=== PATIENT | female | born 1990 | race Caucasian/White ===

== ENCOUNTER 2019-05-14 05:31 | Inpatient (IN) ==
[2019-05-14] MEDS ORDERED: OXYTOCIN 30 UNITS/500 ML BAG IV PRN ×3 (05:47→16:06)
--- NOTE | 2019-05-14 05:49 | History & Physical Report ---
Date of Service May 14, 2019 Assessment & Plan (1) Term : 28yo at 40.2 weeks GA. SROM/ Early labor 1. Fetus Cat1/Cat2 with some variable decels 2 Labor: Progressed compared to exam yesterday. Painfully adam q4-5 minutes. Will augment if indicated 3. Vitals: WNL 4. GBS negative 5. gDM. Well controlled with diet. (2) Gestational diabetes: History of Present Illness Primary Care Provider: Seamus Rodriguez MD 28yo at 40.2 weeks GA. Presents with contractions and LOF. No VB. Good FM. complicated be A1gDM. GBS negative. OBHx for prior VAVD Allergies Allergy/AdvReac Type Severity Reaction Status Date / Time No Known Allergies Allergy Verified 05/14/19 05:56 Home Medications Home Medications Medication Instructions Recorded Confirmed Type escitalopram oxalate [Lexapro] 5 mg PO DAILY 05/05/19 05/14/19 History vit-iron fum-folic ac 1 tab PO DAILY 05/05/19 05/14/19 History [ Vitamin] Patient History Medical History Anxiety Gestational diabetes Surgical History Hx of cholecystitis [place] teeth extracted Social History Preferred Language: [place] Accounts Payable Clerk Required: No Beliefs That Will Affect Care: None marital status: Single Current Living Situation: Spouse Current Living Situation Comment: fiance and son Other Information That Helps Us Care for You: No Feels Safe at Home: Yes Safety Concerns: Feels Safe At This Time Smoking Status: Never smoker Second Hand Exposure: No Hx Alcohol Use: No Hx Substance Use: No Physical Exam Genitourinary: OB Exam Abdomen: + vertex Manual OB Exam: + cervical dilation 2 cm, + cervical effacement 70%, + station -2 and + amniotic fluid (Grossly ruptured) clear and nitrazine positive OB Exam Monitor Tracing: + category II, + normal FHT variability and + variable decelerations Results & Data Vital Signs (Past 12 Hours) Vital Signs Pulse BP 05/14/19 05:44 66 123/77
[2019-05-14] MEDS: LACTATED RINGER'S 1,000 ML IV PRN ×2 (05:53→06:58)
[2019-05-14] MEDS ORDERED: BUPIVACAINE 0.25% 30 ML VIAL ONE (06:03)
[2019-05-14] MEDS ORDERED: ePHEDrine sulfate 50 MG/ML AMP ONE (06:03)
[2019-05-14] MEDS ORDERED: fentaNYL citrate 100 MCG/2 ML VIAL ONE (06:03)
[2019-05-14] MEDS ORDERED: fentaNYL 2MCG/ML ROPIV 1.25MG/ML 100 ML BAG EPI ONE (06:04)
[2019-05-14 06:10] LABS: Hematocrit (blood only) 33.1 % (37-47); Hemoglobin 11.4 g/dL (12.0-16.0); Mean Corpuscular Volume 82.5 fL (80-100); Mean Platelet Volume 10.7 fL (7.4-10.4); Platelet Count 193 K/uL (130-400); RDW Standard Deviation 39.2 fL (36.4-46.3); Red Blood Count 4.01 M/uL (4.2-5.4); White Blood Count 7.16 K/uL (4.8-10.8)
[2019-05-14 06:49] LABS: Mean Corpuscular Hgb Conc 34.4 g/dL (32-36)
--- NOTE | 2019-05-14 07:00 | Anesthesiology Consultation ---
Date of Service May 14, 2019 Assessment & Plan (1) Encounter for pre-operative examination: Chart Review Chart Review: Patient NOT seen in Pre Admission Testing and Acceptable Risk for Labor Epidural Consults Requested none ASA ASA3 Proposed Anesthesia Anesthesia Type: Labor Epidural Risk / Benefits Reviewed With: PT / POA / Parent / Guardian, Accepts Plan and Informed Consent Obtained History Height/Weight Height: 4 ft 10 in Weight: 90.265 kg Allergies Allergy/AdvReac Type Severity Reaction Status Date / Time No Known Allergies Allergy Verified 05/14/19 05:56 Medications Home Medications Medication Instructions Recorded Confirmed Last Taken escitalopram oxalate [Lexapro] 5 mg PO DAILY 05/05/19 05/14/19 05/12/19 vit-iron fum-folic ac 1 tab PO DAILY 05/05/19 05/14/19 05/12/19 [ Vitamin] Active Medications Generic Name Dose Route Start Last Admin Trade Name Freq PRN Reason Stop Dose Admin Lactated Ringer's 1,000 mls @ 125 mls/hr 05/14/19 05:47 05/14/19 06:58 Lr IV 05/16/19 05:46 125 mls/hr .Q8H PRN Administration L&D Protocol Protocol NPO Date Last Intake of Fluids: 05/14/19 Time Last Intake of Fluids: 07:02 Date Last Intake of Solids: 05/13/19 Time Last Intake of Solids: 21:30 Past Medical History Medical History Anxiety Gestational diabetes Exercise / Class Metabolic Activity II 4-5 Yardwork/Stairs/Walk up hill Negative for chest pain or shortness of breath. Past Surgical History Surgical History Hx of cholecystitis [place] teeth extracted Past Anesthesia History No Hx of Anesthesia Complications History of PONV History of PONV and Hx of Motion Sickness Social History Smoking Status: Never smoker Hx Alcohol Use: No Hx Substance Use: No substance use type: does not use Review of Systems Patient denies history of abnormal bleeding or bleeding disorder. Patient denies active use of anticoagulants other than low dose aspirin. Patient denies numbness, tingling or weakness in lower extremities. Patient denies active symptoms of GERD. Physical Exam Vital Signs Last Vital Signs Temp 36.5 C 05/14/19 07:03 Pulse 91 H 05/14/19 07:06 Resp 18 05/14/19 07:03 BP 103/56 L 05/14/19 07:05 Pulse Ox 98 05/14/19 07:06 Constitutional + morbidly obese ENMT Mouth: no TMJ abnormality and oral opening not small Thyromental Distance: > or= 3.5 Finger Breadths Mallampati Class: III Neck normal visual inspection; neck extension not limited Respiratory normal respiratory effort Auscultation: lungs clear to auscultation bilaterally Cardiovascular Rate/Rhythm: regular rate and regular rhythm Heart Sounds: no murmur Neurologic moves all extremities Motor/Sensory: no sensory deficit Psychiatric Orientation: alert and oriented x 3 Testing Laboratory Results 05/14/19 06:03
[2019-05-14] MEDS ORDERED: NALBUPHINE HCL INJ 10 MG/ML AMP IV PRN (07:06)
[2019-05-14] MEDS ORDERED: NALOXONE HCL 1 MG in SODIUM CHLORIDE 0.9% 1000ML 1,000 ML IV PRN (07:06)
[2019-05-14] MEDS ORDERED: NALOXONE HCL 0.4 MG/1 ML VIAL/CARP IV PRN (07:06)
[2019-05-14] MEDS ORDERED: DiphenhydrAMINE HCL 50 MG/ML VIAL IV PRN (07:06)
[2019-05-14] MEDS ORDERED: fentaNYL 2MCG/ML ROPIV 1.25MG/ML 100 ML BAG EPI PRN (07:06)
[2019-05-14] MEDS ORDERED: ePHEDrine sulfate 50 MG/ML AMP IV PRN (07:06)
[2019-05-14] MEDS ORDERED: ONDANSETRON INJ 2 MG/ML 2 ML VIAL IV PRN (07:06)
--- NOTE | 2019-05-14 07:55 | Labor Progress Brief Note ---
Date of Service May 14, 2019 Subjective Reason For Note: Routine Evaluation Assessment & Plan (1) Term : 28yo at 40.2 weeks GA. SROM/ Early labor 1. Fetus Cat1/Cat2 with some variable decels 2 Labor: Progressing. Henrry q4-5 minutes. Will augment if indicated 3. Vitals: WNL 4. GBS negative 5. gDM. Well controlled with diet. (2) Gestational diabetes: Physical Exam Genitourinary: OB Exam Abdomen: + vertex and + regular contractions Manual OB Exam: + cervical dilation 4 cm, + cervical effacement 90% and + station -1 OB Exam Monitor Tracing: + external FHT monitor used, + external uterine monitor used, + category I, + category II and + variable decelerations Results & Data Vital Signs (Past 12 Hours) Vital Signs Temp Pulse Resp BP Pulse Ox 05/14/19 07:51 77 100 05/14/19 07:48 86 93/58 L 05/14/19 07:46 93 H 99 05/14/19 07:43 72 109/56 L 05/14/19 07:41 78 100 05/14/19 07:37 76 90/53 L 05/14/19 07:36 63 100 05/14/19 07:33 87 88/53 L 05/14/19 07:31 83 98 05/14/19 07:29 80 110/59 L 05/14/19 07:26 73 100 05/14/19 07:21 82 99 05/14/19 07:17 93 H 95/53 L 05/14/19 07:16 98 H 98 05/14/19 07:15 70 123/58 L 05/14/19 07:13 73 112/58 L 05/14/19 07:12 18 05/14/19 07:11 81 106/56 L 100 05/14/19 07:09 85 117/57 L 05/14/19 07:07 84 102/56 L 05/14/19 07:06 91 H 98 05/14/19 07:05 90 103/56 L 05/14/19 07:03 36.5 C 93 H 18 99/56 L 05/14/19 07:01 104 H 90/52 L 97 05/14/19 06:59 96 H 96/55 L 05/14/19 06:57 83 101/53 L 05/14/19 06:56 94 H 99 05/14/19 06:55 72 95/55 L 05/14/19 06:53 87 18 102/55 L 05/14/19 06:51 105 H 99 05/14/19 06:49 90 130/85 05/14/19 06:47 88 22 138/86 05/14/19 06:46 86 100 05/14/19 06:41 72 99 05/14/19 06:36 91 H 98 05/14/19 05:44 36.5 C 66 20 123/77
--- NOTE | 2019-05-14 10:44 | Labor Progress Brief Note ---
Date of Service May 14, 2019 Subjective Comfortable with epidural Assessment & Plan (1) Term : - tracing Cat II, variability with accelerations - no cervical tube coverer 2 hours after epidural - will start pitocin augmentation for arrest dilatation Physical Exam Genitourinary: OB Exam Monitor Tracing: + category II, + normal FHT variability and + variable decelerations Cervix: 4/90/-2 Results & Data Vital Signs (Past 12 Hours) Vital Signs Temp Pulse Resp BP Pulse Ox 05/14/19 10:38 102 H 138/82 05/14/19 10:36 99 H 100 05/14/19 10:31 91 H 99 05/14/19 10:26 81 100 05/14/19 10:22 83 125/80 05/14/19 10:21 85 100 05/14/19 10:16 99 H 100 05/14/19 10:11 90 100 05/14/19 10:08 80 128/71 05/14/19 10:06 96 H 100 05/14/19 10:01 80 100 05/14/19 09:56 81 100 05/14/19 09:52 109 H 137/92 05/14/19 09:51 81 100 05/14/19 09:46 85 100 05/14/19 09:44 36.9 C 18 05/14/19 09:41 91 H 100 05/14/19 09:39 94 H 137/87 05/14/19 09:36 85 100 05/14/19 09:31 93 H 100 05/14/19 09:26 85 100 05/14/19 09:23 99 H 124/72 05/14/19 09:21 90 100 05/14/19 09:16 100 H 100 05/14/19 09:11 94 H 100 05/14/19 09:08 77 129/81 05/14/19 09:06 75 100 05/14/19 09:01 83 100 05/14/19 08:56 80 100 05/14/19 08:53 98 H 126/81 05/14/19 08:51 92 H 99 05/14/19 08:46 94 H 100 05/14/19 08:41 74 99 05/14/19 08:40 78 125/66 05/14/19 08:39 85 171/85 H 05/14/19 08:36 88 99 05/14/19 08:31 79 100 05/14/19 08:26 85 100 05/14/19 08:23 101 H 121/80 93 05/14/19 08:21 80 100 05/14/19 08:16 76 100 05/14/19 08:11 80 99 05/14/19 08:08 68 123/75 05/14/19 08:06 74 100 05/14/19 08:01 73 100 05/14/19 07:56 74 99 05/14/19 07:53 91 H 102/64 05/14/19 07:51 77 100 05/14/19 07:48 86 93/58 L 05/14/19 07:46 93 H 99 05/14/19 07:43 72 109/56 L 05/14/19 07:41 78 100 05/14/19 07:37 76 90/53 L 05/14/19 07:36 63 100 05/14/19 07:33 87 88/53 L 05/14/19 07:31 83 98 05/14/19 07:29 80 110/59 L 05/14/19 07:26 73 100 05/14/19 07:21 82 99 05/14/19 07:17 93 H 95/53 L 05/14/19 07:16 98 H 98 05/14/19 07:15 70 123/58 L 05/14/19 07:13 73 112/58 L 05/14/19 07:12 18 05/14/19 07:11 81 106/56 L 100 05/14/19 07:09 85 117/57 L 05/14/19 07:07 84 102/56 L 05/14/19 07:06 91 H 98 05/14/19 07:05 90 103/56 L 05/14/19 07:03 36.5 C 93 H 18 99/56 L 05/14/19 07:01 104 H 90/52 L 97 05/14/19 06:59 96 H 96/55 L 05/14/19 06:57 83 101/53 L 05/14/19 06:56 94 H 99 05/14/19 06:55 72 95/55 L 05/14/19 06:53 87 18 102/55 L 05/14/19 06:51 105 H 99 05/14/19 06:49 90 130/85 05/14/19 06:47 88 22 138/86 05/14/19 06:46 86 100 05/14/19 06:41 72 99 05/14/19 06:36 91 H 98 05/14/19 05:44 36.5 C 66 20 123/77
[2019-05-14 15:24] LABS: CO2 Cord Arterial Blood 52 mmHg (39.1-73.5); HCO3 Cord Arterial Blood 19 mmol/L (19.7-28.5); pH Cord Arterial Blood 7.18 (7.1-7.38)
[2019-05-14 15:31] LABS: Base Excess Cord Venous Blood -9.5 mEq/L (-7.7-1.9); Cord Venous Blood HCO3 16 mmol/L (18.4-26.8); Cord Venous Blood PCO2 36 mmHg (30.4-57.2); Cord Venous Blood PO2 31 mmHg (14.1-43.3); Cord Venous Blood pH 7.28 (7.20-7.44)
[2019-05-14 15:32] LABS: Oxygen Sat Cord Arterial Blood < 60.0 % (<60)
[2019-05-14] MEDS ORDERED: HYDROCORTISONE ACETATE 25 MG SUPP PR PRN (16:06)
[2019-05-14] MEDS ORDERED: SUPERCREAM 0.870% 15 GM JAR EXT PRN (16:06)
[2019-05-14] MEDS ORDERED: ACETAMINOPHEN W/CODEINE #3 1 TAB PO PRN (16:06)
[2019-05-14] MEDS ORDERED: DIPHTHERIA/TETANUS/PERTUSSIS 0.5 ML SYR/VIAL IM ONE (16:06)
[2019-05-14] MEDS ORDERED: MEASLES, MUMPS & RUBELLA VIRUS VIAL SQ ONE (16:06)
[2019-05-14] MEDS ORDERED: BENZOCAINE 20% AER SPR 82.5 GM CAN EXT PRN (16:06)
[2019-05-14] MEDS ORDERED: IBUPROFEN 600 MG TAB PO PRN (16:06)
--- NOTE | 2019-05-14 16:29 | Anesthesia Procedure Note ---
Date of Service May 14, 2019 Anesthesia Post Epidural Note Vital Signs Vital Signs: Temp Pulse Resp BP Pulse Ox 98.4 F 75 18 138/70 100 05/14/19 13:56 05/14/19 16:05 05/14/19 16:05 05/14/19 16:20 05/14/19 14:56 Notes Mental Status: alert / awake / arousable and participated in evaluation Nausea / Vomiting: adequately controlled Pain: adequately controlled Airway Patency, RR, SpO2: stable & adequate BP & HR: stable & adequate Hydration State: stable & adequate Neuraxial Anesthesia: was administered and sensory block is resolving Anesthetic Complications: no major complications apparent and Pt Satisfied with anesthetic care Epidural: Removed without complications and With tip intact
--- NOTE | 2019-05-14 21:00 | Delivery Summary ---
DATE OF OPERATION: 05/14/2019 FINDINGS: Viable male with Apgars of 5, 7 and 8. Arterial cord pH of 7.18, pCO2 of 52, pO2 of 19, venous cord pH of 7.28 and pCO2 of 31. Tight nuchal cord cut before delivery. Placenta delivered spontaneously intact perineum. ESTIMATED BLOOD LOSS: 300 mL. LABOR NOTE: The patient is a 28-year-old 2, para 1 with an EDC of 05/12/2019 by dates and first trimester ultrasound who is admitted in active labor. The patient had spontaneous rupture of membranes with subsequent onset of contractions and presented to labor and delivery for evaluation. The patient's course was remarkable for gestational diabetes. This was managed with diet modification. Laboratory values for the show a blood type of AB positive, antibody negative, rubella nonimmune, hepatitis B negative. She had a negative cell free DNA screening, diabetes was diagnosed at 28 weeks and she had a negative third trimester beta strep culture. Upon admission, the patient was 2 cm dilated and progressed to 4 cm. Anesthesia was consulted and an epidural was placed. The delivering physician assumed care for the patient at this point. The patient was checked again 3 hours later with no cervical change and Pitocin augmentation was initiated. The patient progressed to full dilatation, began her second stage. During the second stage, the patient had tachycardia with variable decelerations with contractions. Supplemental oxygen was applied. Baby delivered a viable infant over an intact perineum. Tight nuchal cord requiring cutting on the perineum. Delivery of the infant and baby taken to the resuscitation stand. Cord gases and cord blood samples obtained. Placenta delivered spontaneously. Inspection of the perineum was intact. Estimated blood loss was 300 mL. Sponge and needle count was correct. I attest to the content of the Intraoperative Record and any orders documented therein. Any exceptions are noted below. MTDD
[2019-05-14] MEDS: DOCUSATE SODIUM 100 MG CAP PO SCH (21:06)
[2019-05-15] MEDS: ACETAMINOPHEN 325 MG TAB PO PRN ×2 (00:01→07:56)
[2019-05-15 06:33] LABS: Hematocrit (blood only) 32.7 % (37-47); Hemoglobin 11.2 g/dL (12.0-16.0); Mean Corpuscular Hgb Conc 34.3 g/dL (32-36); Mean Corpuscular Volume 82.4 fL (80-100); Mean Platelet Volume 10.8 fL (7.4-10.4); Platelet Count 178 K/uL (130-400); RDW Standard Deviation 39.4 fL (36.4-46.3); Red Blood Count 3.97 M/uL (4.2-5.4); White Blood Count 12.62 K/uL (4.8-10.8)
--- NOTE | 2019-05-15 07:33 | Obstetrical Progress Note ---
Date of Service May 15, 2019 Assessment & Plan (1) Term : - routine care - doing well Subjective Ambulation: ambulating normally Voiding: no voiding problems Diet Tolerance:: regular diet Feeding Type:: breast feeding Physical Exam Gastrointestinal (Abdomen) Fundus firm below U Musculoskeletal (+) deep calf tenderness Results & Data Vital Signs (Past 12 Hours) Vital Signs Temp Pulse Resp BP Pulse Ox 05/15/19 04:25 36.9 C 59 L 18 130/84 100 05/15/19 00:20 37.1 C 78 18 125/74 97 05/14/19 20:15 36.6 C 66 18 116/71 96
[2019-05-15] MEDS: DOCUSATE SODIUM 100 MG CAP PO SCH ×2 (07:55→20:58)
[2019-05-15] MEDS: PRENATAL VITAMIN 1 TAB PO SCH (07:55)
[2019-05-15] MEDS: FERROUS SULFATE 325 MG TAB PO SCH (07:56)
[2019-05-15] MEDS: ESCITALOPRAM OXALATE 10 MG TAB PO SCH (09:24)
[2019-05-15] MEDS ORDERED: BISACODYL 5 MG TABEC PO SCH (20:00)
--- NOTE | 2019-05-16 06:13 | Obstetrical Progress Note ---
Date of Service May 16, 2019 Assessment & Plan (1) Term : - patient desires d/c home - instructions given - f/u in 6 weeks Subjective Ambulation: ambulating normally Voiding: no voiding problems desires d/c Physical Exam Constitutional WD/WN, vitals as above Gastrointestinal (Abdomen) Fundus firm below umbilicus Musculoskeletal No deep calf tenderness Results & Data Vital Signs (Past 12 Hours) Vital Signs Temp Pulse Resp BP Pulse Ox 05/15/19 23:37 36.5 C 54 L 16 119/79 98 05/15/19 19:58 37.2 C 75 18 121/71 97
[2019-05-16 06:45] LABS: Hematocrit (blood only) 32.8 % (37-47); Hemoglobin 11.1 g/dL (12.0-16.0)
[2019-05-16] MEDS: ESCITALOPRAM OXALATE 10 MG TAB PO SCH (08:05)
[2019-05-16] MEDS: DOCUSATE SODIUM 100 MG CAP PO SCH (08:06)
[2019-05-16] MEDS: PRENATAL VITAMIN 1 TAB PO SCH (08:06)
[2019-05-16] MEDS: FERROUS SULFATE 325 MG TAB PO SCH (08:06)
== END 2019-05-16 13:00 | disposition home or self-care (01) | DRG 807 ==
LOC: OPB 05:31 → 4S1 05:36 → 4S2 18:00

== ENCOUNTER 2022-01-30 07:51 | Inpatient (IN) ==
[2022-01-30] MEDS ORDERED: OXYTOCIN 30 UNITS/500 ML BAG IV PRN ×3 (08:04→19:13)
[2022-01-30 08:33] LABS: Hematocrit (blood only) 32.5 % (37-47); Hemoglobin 11.1 g/dL (12.0-16.0); Mean Corpuscular Hemoglobin 29.4 pg (25-34); Mean Corpuscular Hgb Conc 34.2 g/dL (32-36); Mean Platelet Volume 10.2 fL (7.4-10.4); Platelet Count 193 K/uL (130-400); RDW Coefficient of Variation 13.4 % (11.5-14.5); RDW Standard Deviation 41.8 fL (36.4-46.3); Red Blood Count 3.78 M/uL (4.2-5.4); White Blood Count 5.65 K/uL (4.8-10.8)
--- NOTE | 2022-01-30 09:04 | History & Physical Report ---
Date of Service January 30, 2022 Assessment & Plan (1) Encounter for induction of labor: Plan: 31-year-old w/ complicated by Suboxone maintenance, IUGR (now resolved@33 WGA), presenting to L&D at 39.0 WGA for IOL. * GBS-, Rh+, Rubella equivocal * Admit to L&D * NPO except sips and chips * Pitocin PRN * Pt. open to epidural * Maintenance IVF: Lactated Ringer's at 125 mL * Continuous electronic heart monitoring * Full Code * Anticipate Admission and Anticipated Discharge Date Admission Date: January 30, 2022 History of Present Illness Primary Care Provider: Esperanza Finn PA-C Sakina is a 31-year-old currently at 39.0 WGA with an ITA 02/06/2022 as determined by ultrasound who is here for a scheduled induction. Her was complicated by IUGR (resolved at 33 weeks), and Suboxone maintenance. No contractions; + movement; No fluid loss; No bloody show Had regular appointments with OB. Labs: 01/30/2022 Blood type: AB positive Antibody screen: Negative H.1 Hct: 32.5% WBC: 5.65 Plt: 193 Rubella: Equivocal L RPR: Nonreactive Gonorrhea: Not detected Chlamydia: Not detected HIV: Negative HbSAg: Negative GBS: Negative Other screens: cff-DNA: Low risk for trisomies 13, 18, 21, Monosomy X, triploidy, and 22q11.2 deletion. CF: Negative SMA: Negative Allergies Allergy/AdvReac Type Severity Reaction Status Date / Time No Known Allergies Allergy Verified 01/23/22 09:33 Home Medications Medication Instructions Recorded Confirmed Type acetone (urine) test (Ketone Urine #50 ea 07/15/21 01/29/22 Rx Test) blood sugar diagnostic (OneTouch #150 ea 07/15/21 01/29/22 Rx Verio test strips) blood-glucose meter (OneTouch #1 ea 07/15/21 01/29/22 Rx Verio Flex meter) lancets 33 gauge (OneTouch Delica #150 ea 07/15/21 01/29/22 Rx Plus Lancet) buprenorphine HCl [Subutex] SUBLINGUAL 08/06/21 01/29/22 History ondansetron HCl 4 mg tablet 4 mg PO Q6H PRN #20 tab 01/10/22 01/30/22 Rx buprenorphine HCl 8 mg sublingual 8 mg SUBLINGUAL BID 01/30/22 01/30/22 History tablet prenat.vits,john,[id number] 1 tab PO DAILY 01/30/22 01/30/22 History Patient History Medical History (Updated 01/30/22 @ 11:33 by Selena Chowdhury MD) Anxiety Depression Gestational diabetes Surgical History (Updated 06/21/19 @ 14:23 by Marj Duckworth) Hx of cholecystitis S/P cholecystectomy [place] teeth extracted Family History (Updated 06/21/19 @ 14:24 by Marj Duckworth) Aunt Breast cancer maternal Mother Thyroid disease Other Diabetes Social History (Updated 06/12/21 @ 14:18 by Patricia Plaza) Smoking Status: Former smoker Second Hand Exposure: No; Hx Alcohol Use: No Hx Substance Use: No Preferred Language: Sinhala Transmissions Systems Operator Required: No Beliefs That Will Affect Care: None marital status: Current Living Situation: Spouse Current Living Situation Comment: lives with and children current occupational status: employed current occupation: [employer] Person Feels Safe at Home: Yes Safety Concerns: Feels Safe At This Time Assistive Devices: None Review of Systems All systems reviewed & are unremarkable except as noted in HPI & below Physical Exam Physical Exam: General: Alert, oriented. No acute distress. Cardiac: Regular rate and rhythm, no murmurs/rubs/gallops. Respiratory: Clear to auscultation bilaterally a/p, no wheezes/rales/rhonchi. No increased work of breathing. Symmetrical chest rise. No respiratory distress. Pelvic: Dilation 0.5 cm; Effacement 50%; Station -[address] Pastrana Lower Extremities: No lower extremity edema or swelling. No deep calf pain. Nils's negative bilaterally Baseline: 120 bpm Variability: Moderate Accelerations: 5+ in 20 minutes Decelerations: None Results & Data ([facility]) Vital Signs (Past 12 Hours) Vital Signs Pulse BP 01/30/22 08:05 93 H 107/57 L Supervising Physician Co-Signing Physician Notes Resident Physician Supervision Note: I interviewed and examined the patient. Discussed with Dr. Chowdhury and agree with findings and plan as documented in the note. Any exceptions or clarifications are listed here: 31yo @ 39 , IOL. Subramanian bulb placed, pitocin started, ok for epidural when she desires. Documented By: Roma Pastrana DO Resident Activity Tracking Resident Involvement: Resident Care Provided Care Provided: OB Delivery
[2022-01-30] MEDS: LACTATED RINGER'S 1,000 ML IV PRN ×3 (09:31→18:19)
[2022-01-30] MEDS ORDERED: OXYTOCIN 20 UNITS in LACTATED RINGER'S 1,000 ML IV SCH (10:00)
[2022-01-30 10:53] LABS: Amphetamines+Metham, Urine Neg (Neg); Barbiturates, Urine Neg (Neg); Benzodiazepine, Urine Neg (Neg); Cocaine, Urine Neg (Neg); MDMA (Ecstacy), Urine Neg (Neg); Methadone, Urine Neg (Neg); Opiate, Urine Neg (Neg); Phencyclidine, Urine Neg (Neg)
[2022-01-30] MEDS ORDERED: SODIUM CHLORIDE 0.9% INJ 10 ML VIAL ONE (13:22)
[2022-01-30] MEDS ORDERED: ePHEDrine sulfate 50 MG/ML AMP ONE (13:22)
[2022-01-30] MEDS ORDERED: fentaNYL citrate 100 MCG/2 ML VIAL ONE (13:23)
[2022-01-30] MEDS ORDERED: fentaNYL 2MCG/ML ROPIVACAINE 1.25MG/ML 100 ML BAG EPI ONE (13:23)
[2022-01-30] MEDS ORDERED: BUPIVACAINE 0.25% 30 ML VIAL ONE (13:23)
--- NOTE | 2022-01-30 14:18 | Anesthesiology Consultation ---
Date of Service January 30, 2022 Assessment & Plan Chart Review Chart Review: Acceptable Risk for Labor Epidural Consults Requested none History Height/Weight Height: 4 ft 10 in Weight: 85.488 kg Allergies Allergy/AdvReac Type Severity Reaction Status Date / Time No Known Allergies Allergy Verified 01/23/22 09:33 Medications Home Medications Medication Instructions Recorded Confirmed Last Taken acetone (urine) test (Ketone Urine #50 ea 07/15/21 01/29/22 Unknown Test) blood sugar diagnostic (OneTouch #150 ea 07/15/21 01/29/22 Unknown Verio test strips) blood-glucose meter (OneTouch #1 ea 07/15/21 01/29/22 Unknown Verio Flex meter) lancets 33 gauge (OneTouch Delica #150 ea 07/15/21 01/29/22 Unknown Plus Lancet) buprenorphine HCl [Subutex] SUBLINGUAL 08/06/21 01/29/22 Unknown ondansetron HCl 4 mg tablet 4 mg PO Q6H PRN #20 tab 01/10/22 01/30/22 01/30/22 0600 buprenorphine HCl 8 mg sublingual 8 mg SUBLINGUAL BID 01/30/22 01/30/22 01/30/22 06:00 tablet prenat.vits,john,[id number]-[id number]-[id number] 1 tab PO DAILY 01/30/22 01/30/22 01/29/22 08:00 Active Medications Generic Name Dose Route Start Last Admin Trade Name Freq PRN Reason Stop Dose Admin Lactated Ringer's 1,000 mls @ 125 mls/hr 01/30/22 08:04 01/30/22 13:35 Lr IV 02/01/22 08:03 999 mls/hr .Q8H PRN Infusion L&D Protocol Protocol Oxytocin 30 units in 500 mls @ 7 mls/hr 01/30/22 09:57 01/30/22 11:55 Pitocin IV 02/01/22 09:56 0.42 units/hr .Q24H PRN 7 mls/hr Labor Induction/Augmentation Titration Protocol 0.42 UNITS/HR Past Medical History Medical History (Updated 01/30/22 @ 11:33 by Selena Chowdhury MD) Anxiety Depression Gestational diabetes Past Family History Family History (Updated 06/21/19 @ 14:24 by Marj Duckworth) Aunt Breast cancer maternal Mother Thyroid disease Other Diabetes Past Surgical History Surgical History (Updated 06/21/19 @ 14:23 by Marj Duckworth) Hx of cholecystitis S/P cholecystectomy [place] teeth extracted Social History Smoking Status: Former smoker Hx Alcohol Use: No Hx Substance Use: No substance use type: former substance user Substance Use Type Other:: was taking suboxone prior to Physical Exam Vital Signs Last Vital Signs Temp 37.2 C 01/30/22 09:44 Pulse 83 01/30/22 14:13 Resp 22 01/30/22 09:44 BP 113/66 01/30/22 14:13 Pulse Ox 99 01/30/22 14:13 Testing Laboratory Results 01/30/22 08:15 01/30/22 10:47 POC Glucose 95
[2022-01-30] MEDS ORDERED: ePHEDrine sulfate 50 MG/ML AMP IV PRN (14:20)
[2022-01-30] MEDS ORDERED: fentaNYL 2MCG/ML ROPIVACAINE 1.25MG/ML 100 ML BAG EPI PRN (14:20)
[2022-01-30] MEDS ORDERED: NALOXONE HCL 0.4 MG/1 ML VIAL/CARP IV PRN (14:20)
[2022-01-30] MEDS ORDERED: diphenhydrAMINE 50 MG/ML VIAL IV PRN (14:20)
[2022-01-30] MEDS ORDERED: NALOXONE HCL 1 MG in SODIUM CHLORIDE 0.9% 1000ML 1,000 ML IV PRN (14:20)
[2022-01-30] MEDS ORDERED: NALBUPHINE HCL INJ 10 MG/ML AMP IV PRN (14:20)
--- NOTE | 2022-01-30 18:51 | Delivery Summary ---
Vaginal Delivery Summary Date of Service January 30, 2022 Vaginal Delivery Summary Vaginal Delivery Summary: Pre-delivery diagnoses: 31yo @ 39 0/7, IOL, GDMA1, subutex use, prior IUGR, 2 vessel cord Post-delivery diagnoses: same Procedure: spontaneous vaginal delivery Surgeon: Roma Pastrana DO Complications: none Findings: Viable male . Apgars: 8/9 . Weight pending, please see nursery records. Estimated blood loss: 300ml Description of delivery: The patient progressed to complete with epidural anesthesia. She then began to push. She spontaneously vaginally delivered a viable from the cephalic presentation. The head delivered in CHLOE position. The anterior shoulder delivered, followed by the posterior shoulder, followed by the body. Cord wrapped around body. The baby was placed on mother's abdomen and a spontaneous cry was heard. Delayed cord clamping was employed, and the cord was doubly clamped and cut. Cord blood was obtained. The placenta was delivered spontaneously intact. The uterus and vagina were swept of clots and debris. IV pitocin was given. The uterus became firm. The cervix, vagina, and perineum were inspected and no lacerations were noted. Excellent hemostasis was observed. The mother and baby are recovering in stable and good condition in the room. Sponge and instrument counts were correct x 2. Roma Past[facility]ana DO [facility] Vaginal Delivery Charge Vaginal Delivery Codes: 16590 global code for the antepartum, delivery, and post- Delivery Type Details:
[2022-01-30] MEDS ORDERED: ACETAMINOPHEN 325 MG TAB PO PRN (19:13)
[2022-01-30] MEDS ORDERED: DIPHTHERIA/TETANUS/PERTUSSIS 0.5 ML SYR/VIAL IM ONE (19:13)
[2022-01-30] MEDS ORDERED: bisacodyL 10 MG SUPP PR PRN (19:13)
[2022-01-30] MEDS ORDERED: HYDROCORTISONE ACETATE 25 MG SUPP PR PRN (19:13)
[2022-01-30] MEDS ORDERED: oxyCODONE/ACETAMINOPHEN 5mg/325mg TAB PO PRN (19:13)
[2022-01-30] MEDS ORDERED: BENZOCAINE 20% AER SPR 82.5 GM CAN EXT PRN (19:13)
[2022-01-30] MEDS ORDERED: ONDANSETRON 4 MG OD TAB PO PRN (19:22)
[2022-01-30] MEDS: IBUPROFEN 600 MG TAB PO PRN (19:26)
--- NOTE | 2022-01-30 19:43 | Anesthesia Procedure Note ---
Date of Service January 30, 2022 Anesthesia Post Epidural Note Vital Signs Vital Signs: Temp Pulse Resp BP Pulse Ox 36.6 C 106 H 18 120/57 L 88 L 01/30/22 17:51 01/30/22 19:37 01/30/22 17:51 01/30/22 19:37 01/30/22 18:40 Notes Mental Status: alert / awake / arousable Nausea / Vomiting: adequately controlled Pain: adequately controlled Airway Patency, RR, SpO2: stable & adequate BP & HR: stable & adequate Hydration State: stable & adequate Neuraxial Anesthesia: was administered and sensory block is resolving Anesthetic Complications: no major complications apparent and Pt Satisfied with anesthetic care Epidural: Removed without complications and With tip intact
[2022-01-30] MEDS: DOCUSATE SODIUM 100 MG CAP PO SCH (20:41)
[2022-01-30] MEDS: buprenorphine HCL 8 MG SUBL SL SCH (20:42)
[2022-01-31] MEDS: IBUPROFEN 600 MG TAB PO PRN ×2 (01:50→10:13)
[2022-01-31 06:42] LABS: Hemoglobin 10.4 g/dL (12.0-16.0)
--- NOTE | 2022-01-31 06:58 | Obstetrical Progress Note ---
Date of Service <Selena Chowdhury MD - Last Filed: 01/31/22 07:23> January 31, 2022 Assessment & Plan <Selena Chowdhury MD - Last Filed: 01/31/22 07:23> (1) Encounter for care and examination after delivery: PPD 1: stable, routine management * Rubella equivocal: MMR vaccination per guidelines * patient voiding and ambulating without difficulty * pain well controlled on analgesia * tolerating regular diet * bottle feeding * anticipate d/c to home today as Hgb stable, baby at [facility] * 6-week OB outpatient follow-up <Roma Pastrana DO - Last Filed: 01/31/22 07:26> (1) Encounter for care and examination after delivery: Subjective <Selena Chowdhury MD - Last Filed: 01/31/22 07:23> Sakina is a 31 y/o female who is now PPD #1 following spontaneous vaginal delivery at 39.0 weeks. Reports feeling well overall this morning. Some cramping pain well managed on analgesics. Voiding well. Tolerating meals well and able to ambulate on her own. + passing gas but no bowel movements. Lochia about the same this morning. Bottle feeding. Review of Systems Denies fever, chills, sweats Denies shortness of breath, difficulty breathing, chest pain, palpitations, chest pressure. Denies breast pain. Denies dysuria. Denies headache or changes in vision Physical Exam <Selena Chowdhury MD - Last Filed: 01/31/22 07:23> General: Alert, oriented. No acute distress. Cardiac: Regular rate and rhythm, no murmurs/rubs/gallops. Respiratory: Clear to auscultation bilaterally a/p, no wheezes/rales/rhonchi. No increased work of breathing. Symmetrical chest rise. No respiratory distress. Abdomen: Soft, nontender, nondistended. Bowel sounds present. Uterus: Uterine fundus firm, palpable at the umbilicus. Lower Extremities: No lower extremity edema or swelling. No deep calf pain. Nils's negative bilaterally.. Results & Data ([facility]) <Selena Chowdhury MD - Last Filed: 01/31/22 07:23> Vital Signs (Past 12 Hours) Vital Signs Temp Pulse Pulse Resp BP BP Pulse Ox 01/31/22 04:00 36.4 C L 69 18 112/74 01/30/22 23:17 36.7 C 90 16 111/76 96 01/30/22 21:30 37.1 C 98 H 18 94/62 L 95 01/30/22 20:55 106 H 117/56 L 01/30/22 20:40 106 H 120/57 L 01/30/22 20:25 100 H 117/69 01/30/22 20:10 95 H 118/68 01/30/22 19:55 108 H 127/81 01/30/22 19:50 18 01/30/22 19:37 106 H 120/57 L 01/30/22 19:21 92 H 143/77 H 01/30/22 19:06 104 H 144/70 H 01/30/22 19:05 37.3 C 18 <Roma Pastrana DO - Last Filed: 01/31/22 07:26> Co-Signing Physician Notes Resident Physician Supervision Note: I was present with Dr. Chowdhury during the history and exam. I discussed the case with the resident and agree with the findings and plan as documented in the note. Any exceptions or clarifications are listed here: PPD#1 doing well. Baby has been transferred to [facility] for TTN, patient would like to be discharged to be with baby at NICU. Hgb stable, doing well. Documented By: Roma Pastrana DO Resident Activity Tracking <Selena Chowdhury MD - Last Filed: 01/31/22 07:23> Resident Involvement: Resident Care Provided Care Provided: OB Delivery
[2022-01-31] MEDS ORDERED: MEASLES, MUMPS & RUBELLA VIRUS VIAL SQ ONE (07:06)
[2022-01-31] MEDS: DOCUSATE SODIUM 100 MG CAP PO SCH (07:50)
[2022-01-31] MEDS ORDERED: PRENATAL VITAMIN 1 TAB PO SCH (08:00)
[2022-01-31] MEDS: buprenorphine HCL 8 MG SUBL SL SCH (08:33)
[2022-01-31] MEDS ORDERED: bisacodyL 5 MG TABEC PO SCH (20:00)
== END 2022-01-31 10:28 | disposition home or self-care (01) | DRG 806 ==
LOC: 4S1 07:51 → 4S2 21:30 → 4E2 01-31 09:20